=== PATIENT | female | born 1995 | race Asian ===

== ENCOUNTER 2024-10-08 12:57 | Emergency (ER) | payer BC, SELFPAY ==
--- NOTE | ~2024-10-08 | US_ITS ---
EXAMINATION: US OB <= 14 weeks fetus DATE: 10/08/2024 15:40 INDICATION: Abdominal cramping during first trimester TECHNIQUE: Real-time pelvic ultrasound utilizing both a transvaginal and transabdominal probe was pe rformed. The interpreting radiologist was not present for the study. COMPARISON: None. FINDINGS: The uterus measures 10.5 x 8.0 x 10.1 cm. There is an intrauterine gestational sac with single intra uterine fetus. The crown rump length measures 4.4 cm, which correlates with an estimated gestational age of 11 weeks and 1 days. heart motion is identified measuring 174 beats per minute (bpm) by M-mode Doppler. The right ovary measures 2.8 x 2.8 x 2.3 cm. The left ovary measures 3.7 x 2.2 x 2.7 cm. Mass or flow identified in both ovaries on color Doppler. There is no free fluid in the pelvis. IMPRESSION: 1. Single living fetus with heart rate of 174 bpm. 2. Gestational age by ultrasound of 11 weeks 1 day(s) +/- 7 day(s) with ultrasound estimated date of delivery (HALI) of 04/28/2025. Reviewed, dictated and finalized at location A. IMPRESSION: 1. Single living fetus with heart rate of 174 bpm. 2. Gestational age by ultrasound of 11 weeks 1 day(s) +/- 7 day(s) with ultras ound estimated date of delivery (HALI) of 04/28/2025.
[2024-10-08 12:58] VITALS: BP 115/73; PULSE 81; RESP 16; TEMP 36.3; O2SAT 99
--- OUTSIDE RECORDS SUMMARY | 2024-10-08 13:00 | XMS_ITS | Clinical Summary ---
Author Organization [facility] Address [address] [address] Care Team Providers Care Glove Sewer Name Role Phone Osiris Dyer NP Primary Care Provider [phone] Allergies Active Allergy Reactions Criticality Noted Date Comments Doxycycline Hyclate Other (See comments) Low 2023 made her feel wierd Medications lamoTRIgine (LaMICtal) 200 mg tablet Take 1 tablet (200 mg total) by mouth every evening 03/30/2024 Active LORazepam (ATIVAN) 0.5 mg tablet Take by mouth 3 (three) times a day as needed 08/31/2024 Active vit 81-mreq-towfx-d musa 27mg iron- 800 mcg-250 mg capsule Take by mouth Active metoclopramide (REGLAN) 5 mg tabletIndicatio ns:Nausea and vomiting in Take 1 tablet (5 mg total) by mouth 4 (four) times a day 120 tablet 09/02/2024 10/03/19 25 Active Problems Problem Noted Date Diagnosed Date Anxiety 09/02/2024 Positive test 09/02/2024 Primary insomnia 09/02/2024 Vitamin D deficiency 09/02/2024 Allergic rhinitis 09/26/2017 Assessment & Plan (09/26/2017 8:57 AM CDT): Patient with symptoms of allergic rhinitis. Symptoms include rhinorrhea, congestion, and postnasal drip. Patient does not currently take anything for her symptoms. Patient denies any specific triggers and is unaware of a correlating season. The patient to start on Zyrtec, Flonase and saline irrigation daily for her symptoms We may consider RAST testing in the future if her symptoms do not improve. Family history of malignant neoplasm of breast 0 05/20/2016 Overview (08/15/2020): Note: mother Gastroesophageal reflux disease 11/25/2015 Overview (08/19/2016): GERD Assessment & Plan (10/24/2016 12:37 PM CDT): Patient was provided with educational material regarding reflux precautions. Patient was instructed to refrain from eating a meal approximately 3 hours prior to bedtime. Patient was instructed to elevate the head of the bed by approximately 8 inches. Patient was to refrain from consuming spicy greasy fatty foods, dairy products, and excessive caffeine use. Patient was also advised to increase water consumption. Patient was also instructed on weight reduction and exercise regimen. Patient was also instructed on the importance of compliance with medications. Irritable bowel syndrome 10/27/2014 Overview (08/19/2016): IBS Moderate episode of recurrent major depressive d isorder 10/27/2014 Resolved Problems Problem Noted Date Diagnosed Date Resolved Date BRBPR (bright red blood per rectum) 08/25/2023 09/02/2024 Constipation 08/25/2023 09/02/2024 Diarrhea 08/25/2023 09/02/2024 COVID-19 virus infection 12/13/2022 Hypokalemia 12/13/2022 09/02/2024 Nausea 12/13/2022 09/02/2024 Acne 05/03/2017 09/02/2024 Perioral dermatitis 05/03/2017 09/03/19 25 Body mass index (BMI) 20.0-20.9, adult 12/21/2016 09/02/2024 Chronic tonsillitis 10/24/2016 09/03/19 25 Assessment & Plan (01/09/2018 2:03 PM CDT): Patient presents today for her 1st post operative visit. Patient did experience uncontrolled pain and medication induced constipation post operatively - patient did go to the ED 5 days post op for treatment. Today patient notes resolution of her symptoms. Patient has recovered well status post tonsillectomy. Patient is only day 13 post op; I have instructed her to continue soft foods for the next couple of days and ease into regular physical activity; after which there is no need for any further dietary or physical restrictions. Patient to follow up as needed. Assessment & Plan (11/19/2017 12:27 PM CDT): Patient continues to experience recurring tonsillitis. Based on the history obtained from the patient in conjunction with my physical findings patient meets indications to undergo a Coblation tonsillectomy. A thorough discussion took place today with the patient and her mother pertaining to her condition and treatment recommendations. All questions were answered to what appeared to be patient's and mother's understanding and satisfaction. After the procedure was explained in full the potential risk, complications, benefits and alternatives patient would like to proceed. Patient will be scheduled in a timely fashion. Assessment & Plan (10/24/2016 12:37 PM CDT): Based on the history obtained from the patient in conjunction with my physical findings patient meets indications undergo coblation tonsillectomy. A thorough discussion took place today with the patient and her mother pertaining to her her condition. All questions were answered to what appeared to be patient and mother's satisfaction. All questions were answered to what appeared to be patient's understanding and satisfaction. After the procedure was explained in full the potential risk, complications, benefits and alternatives patient would like to proceed. Patient will be scheduled in a timely fashion. Acute bacterial pharyngitis 11/08/2015 09/02/2024 Overview (08/19/2016): Acute bacterial tonsillitis Assessment & Plan (09/26/2017 8:58 AM CDT): Patient with signs and symptoms and correlate with an acute bacterial tonsillitis. Tonsils cryptic, +2 with exudate bilaterally. Erythema present. Again discussed with patient that she meets indications to underg tonsillectomy. We discussed the tonsillectomy procedure, the risks associated with the surgery, and the recovery process in great detail. All of the patients and her mother's questions were answered in full. After the procedure was explained in full, the potential risk, complications, benefits, and alternatives patient would like to proceed. However the patient would like to wait until she returns from [place] has a break from school she plans on coming back in scheduling her tonsillectomy the beginning of December. Patient started on clindamycin Medrol Dosepak Patient to follow up when she is ready to schedule her surgery. 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 Abdominal pain 07/22/2013 09/02/2024 Alternating constipation and diarrhea 06/20/2013 09/02/2024 Skin benign neoplasm 05/16/2013 025 Sebaceous cyst 05/16/2013 09/02/2024 Encounters Date Type Department Care Team Description 09/09/2024 Results Follow-Up [facility] at [address] [place] [address] Osiris Dyer NP CBC with auto differential, Comprehensive metabolic panel, Lipid panel, Additional followed-up results: 7 09/07/2024 8:45 AM CDT Lab [address] [address] Need for hepatitis C screening test; Positive test; Vitamin D deficiency; Screening for thyroid disorder; History of elevated glucose; Screening for lipid disorders 09/02/2024 7:30 AM CDT Office Visit [facility] at [address] [place] [phone] Osiris Dyer NP Positive test (Primary Dx); Nausea and vomiting in ; Irritable bowel syndrome with both constipation and diarrhea; Gastroesophageal reflux disease without esophagitis; Allergic rhinitis, unspecified seasonality, unspecified trigger; Vitamin D deficiency; Primary insomnia; Anxiety; Moderate episode of recurrent major depressive disorder (HCC); Need for hepatitis C screening test; Encounter for hepatitis C screening test for low risk patient; History of elevated glucose; Screening for thyroid disorder; Screening for lipid disorders from Last 3 Months Immunizations Immunization Administration Dates Next Due DTaP 12/19/2000, 0,07/06/1998,04/27/1998,1 05/24/1997 DTaP / Hep B / IPV 04/27/1998 Hep B / HiB 04/27/1998 Hep B, Adolescent or Pediatric 12/29/1999,1998,04/27/1998 HiB 04/27/1998 IPV 12/19/2000,04/27/1998,11/26/1997 ,03/25/1997 Influenza, Unspecified 02/22/2024(Deferred: Floridalma ent Refused) MMR 12/19/2000,03/24/1998 Meningococcal MCV4P (Menactra) 10/27/2014 OPV 04/27/1998,11/26/1997,03/25/1997 Tdap 11/18/2010 Varicella 11/18/2014,11/13/2001 Surgical History Surgery Date Site/Laterality Comments OTHER SURGICAL HISTORY electrocuted 2012. OTHER SURGICAL HISTORY wisdom tooth removal 10/10/14. OTHER SURGICAL HISTORY Zo honeycutt OTHER SURGICAL HISTORY Dr. Jaramillo/Dr. Gregory Dentist COLONOSCOPY 07/13/2013 - 08/12/2013 Medical History Medical History Date Comments Hx Other Medical 2012 ibs; Comments: PULL TAB [employer]ER 10/27/2014 - Recurrent tonsillitis Motion sickness Irritable bowel syndrome GERD (gastroesophageal reflux disease) Depression Anxiety Ear problems Syncope 05/11/2015 Skin neoplasm 02/20/2014 Skin benign neoplasm 05/16/2013 COVID-19 virus infection 12/13/2022 Hypokalemia 12/13/2022 Nausea 12/13/2022 Perioral dermatitis 05/03/2017 Sebaceous cyst 05/16/2013 Diarrhea 08/25/2023 Constipation 08/25/2023 BRBPR (bright red blood per rectum) 08/25/2023 Chronic tonsillitis 10/24/2016 Family History Medical History Relation Name Comments Anxiety disorder Brother Anxiety; Anxiety disorder Father Colon polyps Father Hyperlipidemia Father Hyperlipidemi a; Other Father Alive and well; Breast cancer Mother breast cancer; negative genetic testing. Depression Mother Depression; Other Mother Arthritis-neck; Diabetes Paternal Grandfather Relation Name Status Comments Brother Father Alive Mother Paternal Grandfather Social History Tobacco Use Types Packs/Day Years Used Date Smoking Tobacco: Never Smokeless Tobacco: Never Tobacco Cessation:Counseling Given: Not Answered Alcohol Use Standard Drinks/Week Comments Yes 0 (1 standard drink = 0.6 oz pur e alcohol) 5 mixed drinks weekly Humiliation, Afraid, Rape, and Kick questionnair e Answer Date Recorded Within the last year, have y ou been afraid of your partner or ex-partner? No 03/02/2023 Within the last year, have y ou been humiliated or emotionally abused in other ways by your partner or ex-partner? No Within the last year, have y ou been kicked, hit, slapped, or otherwise physically hurt by your partner or ex-partner? No 03/02/2023 Within the last year, have y ou been raped or forced to have any kind of sexual activity by your partner or ex-partner? No 03/02/2023 AUDIT-C Answer Date Recorded Q1: How often do you have a drink containing alcohol? Never 09/02/2024 Q2: How many drinks containi ng alcohol do you have on a typical day when you are drinking? Patient does not drink Q3: How often do you have si x or more drinks on one occasion? Never 09/02/2024 PHQ-2 Answer Date Recorded PHQ-2 Total Score (If total score is 3 or more points, staff should administer the PHQ-9) 0 09/02/2024 Personal Safety Answer Date Recorded Have you ever been in or are you currently in a harmful physical or emotional relationship or is someone making you feel afraid or unsafe? 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 Not on file Not on file Not on file Obstetrics History Last Filed Vital Signs Vital Sign Reading Time Taken Comments Blood Pressure 100/70 09/02/2024 7:46 AM CDT Pulse 94 09/02/2024 7:46 AM CDT Temperature 36.6 C (97.9 F) 08/31/2023 1:45 PM CDT Respiratory Rate 16 09/02/2024 7:46 AM CDT Oxygen Saturation 100% 09/02/2024 7:46 AM CDT Inhaled Oxygen Concentration - - Weight 56.6 kg (124 lb 11.2 oz) 09/02/2024 7:46 AM CDT Height 160 cm (5' 2.99) 09/02/2024 7:46 AM CDT Body Mass Index 22.1 09/02/2024 7:46 AM CDT Plan of Treatment Health Maintenance Due Date Last Done Comments DTaP/Tdap/Td Vaccine (7 - Td or Tdap) 11/18/2020 11/18/2010, 12/19/2000, 03/29/2000, Additional history exists Cervical Cancer Screening 07/29/2022 07/29/2021, 01/2021 Regular Well Visit/Exam 18-64 03/02/2024 03/02/2023, 07/29/2021, 07/21/2020, Additional history exists Influenza Vaccine (Season Ended) 2025 Depression Screening 09/02/2025 09/02/2024, 09/23/2022, 09/23/2022, Additional history exists Hepatitis B Screening Completed 12/29/1999 , 07/06/1998, 04/27/1998, Additional history exists Varicella Vaccines Completed 11/18/2014, 11/13/2001 Hepatitis C Screening Completed 09/07/2024 HPV Vaccines Aged Out No longer eligi ble based on patient's age to complete this topic Pneumococcal vaccine <65 Aged Out No longer eligible based on patient's age to complete this topic Procedures Procedure Name Priority Date/Time Associated Diagnosis Comments EGFR Routine 09/07/2024 8:56 AM CDT Positive test DIFFERENTIAL AUTO Routine 09/07/2024 8:5 6 AM CDT Positive test HCG, BLOOD, QUANTITATIVE Routine 09/07/2024 8:56 AM CDT Positive test VITAMIN D 25 HYDROXY Routine 09/07/2024 8:56 AM CDT Vitamin D deficiency THYROID FUNCTION CASCADE Routine 09/07/2024 8:56 AM CDT Screening for thyroid disorder HEMOGLOBIN A1C Routine 09/07/2024 8:56 AM CDT History of elevated glucose LIPID PANEL Routine 09/07/2024 8:56 AM CDT Screening for lipid disorders COMPREHENSIVE METABOLIC PANEL Routine 09/07/2024 8:56 AM CDT Positive test CBC WITH AUTO DIFFERENTIAL Routine 09/07/2024 8:56 AM CDT Positive test HEPATITIS C ANTIBODY Routine 09/07/2024 8:56 AM CDT Need for hepatitis C screening test PAP WITH REFLEX TO HIGH RISK HPV Routine 07/29/2021 4:35 PM CDT Well woman exam with routine gynecological exam from Last 3 Months or Most Recently Relevant to Health Maintenance Results * eGFR (09/07/2024 8:56 AM CDT) eGFR >90 >=60 mL/min/1. 73 m2 Comment: Interpretive Data Reference Interval Normal >/= 90 mL/min/1.73m2 Mildly decreased* 60 - 89 mL/min/1.73m2 Mildly to moderately decreased 45 - 59 mL/min/1.73m2 Moderately to severely decreased 30 - 44 mL/min/1.73m2 Severely decreased 15 - 29 mL/min/1.73m2 Kidney Failure < 15 mL/min/1.73m2 *Relative to young adult level Estimated glomerular filtration rate is determined by the 2020 CKD-EPI equation recommended by the National Kidney Foundation (A Unifying Approach to GFR Estimation: Recommendations of the NKF-ASK Task Force on Reassessing the Inclusion of Race in Diagnosing Kidney Disease, JASN 2020). The CKD-EPI equation should not be used for patients with unstable renal function and has not been validated in children and those over 70. Current interpretive data was last reviewed 2021. Blood 09/07/2024 8:56 AM CDT 09/07/2024 9:28 AM CDT us Osiris Dyer NP LAB BLOOD ORDERABLES Final Re sult [facility] [place]) 1 [facility] [place] [address] * Differential, auto (09/07/2024 8:56 AM CDT) Neutrophil abs 5.74 1.50 - 6.50 K/cumm Imm gran abs 0.05 0.00 - 0.10 K/cumm [facility] ([place]) Lymphocyte abs 2.02 0.80 - 3.30 K/cumm [facility] ([place]) Monocyte abs 0.67 0.20 - 0.80 K/cumm [facility] ([place]) Eosinophil abs 0.11 0.00 - 0.50 K/cumm [facility] ([place]) Basophil abs 0.09 0.00 - 0.10 K/cumm [facility] ([place]) Neutrophil pct 66.1 % [facility] ([place]) Comment: Interpretive Data Percent cell count reference ranges are not reported, since discordance with absolute values may lead to misinterpretation of CBC data. Current Interpretive Data was last revised on 2017. Imm gran pct 0.6 % [facility] ([place]) Comment: Interpretive Data Percent cell count reference ranges are not reported, since discordance with absolute values may lead to misinterpretation of CBC data. Current Interpretive Data was last revised on 2017. Lymphocyte pct 23.3 % [facility] ([place]) Comment: Interpretive Data Percent cell count reference ranges are not reported, since discordance with absolute values may lead to misinterpretation of CBC data. Current Interpretive Data was last revised on 2017. Monocyte pct 7.7 % [facility] ([place]) Comment: Interpretive Data Percent cell count reference ranges are not reported, since discordance with absolute values may lead to misinterpretation of CBC data. Current Interpretive Data was last revised on 2017. Eosinophil pct 1.3 % [facility] ([place]) Comment: Interpretive Data Percent cell count reference ranges are not reported, since discordance with absolute values may lead to misinterpretation of CBC data. Current Interpretive Data was last revised on 2017. Basophil pct 1.0 % [facility] ([place]) Comment: Interpretive Data Percent cell count reference ranges are not reported, since discordance with absolute values may lead to misinterpretation of CBC data. Current Interpretive Data was last revised on 2017. Blood 09/07/2024 8:56 AM CDT 09/07/2024 9:28 AM CDT Osiris Dyer MRI ASSISTANT LAB BLOOD ORDERABLES Final Re sult Performing Organization Address City/[facility]/ZIP Co de Phone Number [facility] ([place]) [address] [facility] [place] [address] * Thyroid Function [place] (09/07/2024 8:56 AM CDT) TSH 1.59 0.30 - 4.20 mcIUnit/mL Blood 09/07/2024 8:56 AM CDT 09/07/2024 9:28 AM CDT Osiris Dyer MRI ASSISTANT LAB BLOOD ORDERABLES Final Re sult Performing Organization Address [facility] Co de Phone Number [facility] ([place]) 1 [facility] [place] [address] * CBC with auto differential (09/07/2024 8:56 AM CDT) WBC 8.68 3.80 - 9.90 K/cumm Hgb 14.0 11.9 - 15.5 g/dL [facility] Hct 41.3 35.6 - 45.5 % [facility] Plt 273 150 - 400 K/cumm [facility] ([place]) MPV 9.5 9.1 - 12.3 fL [facility] ([place]) RBC 4.73 3.90 - 5.20 M/cumm [facility] ([place]) MCV 87.3 81.3 - 96.4 fL [facility] ([place]) MCH 29.6 27.1 - 33.3 pg [facility] ([place]) MCHC 33.9 32.3 - 35.7 g/dL [facility] ([place]) RDW CV 12.4 11.1 - 14.9 % [facility] RDW SD 39.9 35.7 - 48.1 fL [facility] ([place]) NRBC abs 0.00 0.00 - 0.01 K/cumm [facility] ([place]) Blood 09/07/2024 8:56 AM CDT 09/07/2024 9:28 AM CDT us Osiris Dyer NP LAB BLOOD ORDERABLES Final Re sult Performing Organization Address [facility] Co de Phone Number [facility] ([place]) [address] [facility] [place] [address] * Hepatitis C antibody Blood (09/07/2024 8:56 AM CDT) Pathologist [facility] Hep C Ab Nonreactive Nonreactive Comment: Interpretive Data Nonreactive: Antibodies to HCV not detected. Does NOT exclude the possibility of recent exposure to HCV. Equivocal: Equivocal for HCV antibodies. Supplemental molecular testing will be automatically performed to determine infection status in accordance with current CDC screening recommendations. Reactive: Positive for HCV antibodies. This may represent current or past HCV infection. Supplemental molecular testing will be automatically performed to determine current infection status in accordance with current CDC screening recommendations. Interpretive data was last revised on 2019. Testing performed by: [facility], [address] [place] [address]., [id number] Blood 09/07/2024 8:56 AM CDT 09/07/2024 3:00 PM CDT us Osiris Dyer NP LAB MICROBIOLOGY - GENERAL OR DERABLES Final Result Performing Organization Address [facility] Co de Phone Number [facility] ([place]) [address] [place] [address] * (ABNORMAL) Vitamin D 25 hydroxy (09/07/2024 8:56 AM CDT) Pathologist [facility] Vitamin D 25-OH 27(L) 30 - 80 ng/mL Blood 09/07/2024 8:56 AM CDT 09/07/2024 9:28 AM CDT us Osiris Dyer NP LAB BLOOD ORDERABLES Final Re sult Performing Organization Address [facility] Co de Phone Number [facility] ([place]) [address] [facility] [place] [address] * (ABNORMAL) hCG, blood, quantitative (09/07/2024 8:56 AM CDT) hCG, quant 46,981.0( H) 0.0 - 5.0 IUnits/L Comment: Interpretive Data Male: < 5 IU/L Non- premenopausal Female: <5 IU/L The Fantasma hCG Beta Quant assay procedure was used. Results from different manufacturers or methods may not be comparable. Serial testing should be performed using the same method. Interpretive Data was last revised on 2023 Blood 09/07/2024 8:56 AM CDT 09/07/2024 9:28 AM CDT Osiris Dyer NP LAB BLOOD ORDERABLES Final Re sult Performing Organization Address [facility] Co de Phone Number [facility] ([place]) [address] [place] [address] * Hemoglobin A1c (09/07/2024 8:56 AM CDT) Pathologist [facility] Hgb A1C 5.1 4.0 - 5.6 % Estimated Average Glucose 100 mg/dL [facility] ([place]) Comment: The ADA recommends reporting an estimated Average Glucose (eAG) with all Hemoglobin A1c results using the equation derived from a study of 507 normal and diabetic adults. Minority populations were underrepresented and children were not included. (Diabetes Care 31:0860-2230, 2008). The eAG is not equivalent to a fasting glucose. Blood 09/07/2024 8:56 AM CDT 09/07/2024 9:28 AM CDT Osiris Dyer NP LAB BLOOD ORDERABLES Final Re sult Performing Organization Address City/[facility]/ZIP Co de Phone Number [facility] ([place]) [address] [facility] [place] [address] * Lipid panel (09/07/2024 8:56 AM CDT) Cholesterol 148 30 - 199 mg/dL Comment: Interpretive Data Ages < or = 19 years Acceptable: <170 mg/dL Borderline high: 170-199 mg/dL High: >or= 200 mg/dL Ages > or = 20 years Desirable: <200 mg/dL Borderline high: 200-239 mg/dL High: >or= 240 mg/dL Literature References: 1. Expert Panel on Integrated Guidelines for Cardiovascular Health and Risk Reduction in Children and Adolescents. Pediatrics 2011;128:S213 2. NCEP Expert Panel. Circulation 2004;110:227 Current Interpretive Data was last revised on 2018. Triglycerides 63 <=149 mg/dL [facility] ([place]) Comment: Interpretive Data Ages < or = 9 years Acceptable: <75 mg/dL Borderline high: 75-99 mg/dL High: >or= 100 mg/dL Ages 10 to 20 years Acceptable: <90 mg/dL Borderline high: 90-129 mg/dL High: >or= 130 mg/dL Ages > or = 20 years Desirable: <150 mg/dL Borderline high: 150-199 mg/dL High: 200-499 mg/dL Very high: >or= 499 mg/dL Literature References: 1. Expert Panel on Integrated Guidelines for Cardiovascular Health and Risk Reduction in Children and Adolescents. Pediatrics 2011;128:S213 2. NCEP Expert Panel. Circulation 2004;110:227 Current Interpretive Data was last revised on 2018. HDL 61 >=40 mg/dL [facility] ([place]) Comment: Interpretive Data Ages < or = 19 years Acceptable: >45 mg/dL Borderline low: 40-45 mg/dL Low: <40 mg/dL Ages > or = 20 years Desirable: >or= 60 mg/dL Low: <40 mg/dL Literature References: 1. Expert Panel on Integrated Guidelines for Cardiovascular Health and Risk Reduction in Children and Adolescents. Pediatrics 2011;128:S213 2. NCEP Expert Panel. Circulation 2004;110:227 Current Interpretive Data was last revised on 2018. LDL, calculated 74 <=129 mg/dL [facility] ([place]) Comment: Interpretive Data Ages < or = 19 years Acceptable: <110 mg/dL Borderline high: 110-129 mg/dL High: >or= 130 mg/dL Ages > or = 20 years Optimal: <100 mg/dL Near optimal: 100-129 mg/dL Borderline high: 130-159 mg/dL High: >160 mg/dL Calculated using the Lui LDL-C estimating equation. This equation was implemented on 2024. Prior to this date LDL-C was estimated using the Friedewald equation. Literature References: 1. Expert Panel on Integrated Guidelines for Cardiovascular Health and Risk Reduction in Children and Adolescents. Pediatrics 2011;128:S213 2. NCEP Expert Panel. Circulation 2004;110:227 3. Lui M et al. JEFF Cardiol. 2020 September 12;5(5):540-548. doi: 10.1001/jamacardio.2020.0013 Current Interpretive Data was last revised on 2024. Non-HDL Cholesterol 87 mg/dL [facility] ([place]) Comment: Interpretive Data Ages < or = 19 years Acceptable: <120 mg/dL Borderline high: 120-144 mg/dL High: >145 mg/dL Ages > or = 20 years When triglycerides are >200 mg/dL, Non-HDL cholesterol is a secondary target of therapy with treatment goals that are 30 mg/dL greater than the LDL cholesterol target. Literature References: 1. Expert Panel on Integrated Guidelines for Cardiovascular Health and Risk Reduction in Children and Adolescents. Pediatrics 2011;128:S213 2. NCEP Expert Panel. Circulation 2004;110:227 Current Interpretive Data was last revised on 2018. Chol/HDL ratio 2 [facility] ([place]) Blood 09/07/2024 8:56 AM CDT 09/07/2024 9:28 AM CDT us Osiris Dyer MRI ASSISTANT LAB BLOOD ORDERABLES Final Re sult [facility]O [facility] (ROXANA) 1 [facility] [place] [address] * Comprehensive metabolic panel (09/07/2024 8:56 AM CDT) Sodium 135 135 - 145 mmol/L Potassium, pl 4.2 3.3 - 4.9 mmol/L [facility] (ROXANA) Chloride 101 97 - 110 mmol/L [facility] ([facility]) CO2 22 22 - 32 mmol/L [facility] ([facility]) Anion gap 12 2 - 15 mmol/L [facility] ([place]) BUN 9 6 - 25 mg/dL [facility] ([place]) Creatinine 0.63 0.60 - 1.10 mg/dL [facility] ([place]XA[facility]) Glucose 91 70 - 199 mg/dL [facility] ([facility]XA[facility]) Comment: Interpretive Data Fasting glucose >/= 126 mg/dl is diagnostic for diabetes. Fasting is defined as no caloric intake for at least 8 hours. Fasting glucose between 100 mg/dl to 125 mg/dl is diagnostic of prediabetes. In a patient with classic symptoms of hyperglycemia or hyperglycemic crisis, a random glucose >/= 200 mg/dl is diagnostic for diabetes. In the absence of unequivocal hyperglycemia, results should be confirmed by repeat testing. The classification and Diagnosis of Diabetes Diabetes Care 2021; 46: S19-S40. Current interpretive data was last revised 2022. Calcium 9.7 8.5 - 10.3 mg/dL [facility] (ROXANA) Bilirubin, total 0.3 0.1 - 1.2 mg/dL [facility] (ROXANA) Protein, pl 7.5 6.5 - 8.5 g/dL [facility] (ROXANA) Albumin 4.4 3.5 - 5.0 g/dL [facility] (ROXANA) Alk phos 45 40 - 130 Units/L [facility] (ROXANA) ALT 11 7 - 45 Units/L [facility] (ROXANA) AST 16 10 - 45 Units/L [facility] (ROXANA) Blood 09/07/2024 8:56 AM CDT 09/07/2024 9:28 AM CDT us Osiris Dyer MRI ASSISTANT LAB BLOOD ORDERABLES Final Re sult [facility] (ROXANA) 1 [facility] [place] [address] * Pap with reflex to High Risk HPV (07/29/2021 4:35 PM CDT) CLINICAL INFORMATION: Faraz Enriquez Comment:Routine exam LMP Faraz Enriquez Comment:07/15/2021 Previous Pap Faraz Enriquez Comment:Information not prov ided Prev. Bx Faraz Enriquez Comment:Information not prov ided SOURCE: Faraz Enriquez Comment:Cervix, Endocervix Pap, specimen adequacy Faraz Enriquez Comment: Satisfactory for evaluation. Endocervical/transformation zone component present. HPV interp Faraz Enriquez Comment:Negative for intraep ithelial lesion or malignancy. COMMENTS Faraz Enriquez Comment: This Pap test has been evaluated with computer assisted technology. Mobile Home Laborer Marcus Monroy Comment: MVB, CT(ASCP) CT screening location: [place] [address] [address] [place] [address] Review fiscal agent Faraz Enriquez Comment: ABC, CT(ASCP) CT screening location: [place] [address] Administration [place] [address] Comment Faraz Enriquez Comment: EXPLANATORY NOTE: The Pap is a screening test for cervical cancer. It is not a diagnostic test and is subject to false negative and false positive results. It is most reliable when a satisfactory sample, regularly obtained, is submitted with relevant clinical findings and history, and when the Pap result is evaluated along with historic and current clinical information. Thin prep 07/29/2021 4:35 PM CDT 07/30/2021 3:15 AM CDT us Jackelyn Duenas MRI ASSISTANT LAB CYTOLOGY ORDERABLES F inal Result FARAZ Faraz Alpheus CommunicationsGilmaSarah Beth [address] [address] [place] [address] from Last 3 Months or Most Recently Relevant to Health Maintenance Insurance CIGNA IB Member Subscriber Plan / Payer (Ef fective 2002-Present) Name:Maggei Roman Relation to Subscriber:Self Name:Maggie Roman Payer ID:[id number] ([facility]) Group ID:[id number] Type:CIGNA HMO/PPO Address: [facility] [address] [place] [address] [facility] CHOICE PLUS CIGNA [facility] CHOICE PLUS [facility] Advance Directives For more information, please contact: [phone] * Full Code (Latest Code Status on File) Date Activated Date Inactivated Comments 08/31/2023 11:30 AM 08/31/2023 6:01 PM Care Teams Glove Sewer Relationship Specialty Start Date End Date Osiris Dyer NP [address] [facility] [address] PCP - General Family Medicine 09/02/24
--- OUTSIDE RECORDS SUMMARY | 2024-10-08 13:00 | XMS_ITS | Patient Health Record ---
Author Organization [facility] Address [address] [place] [address] Care Team Providers Care Viner Operator Name Role Phone Pablo Magallanes Primary Care Provider Reason For Referral No Information Medications Medication SIG (Take, Route, Fr equency, Duration) Notes Start Date End Date Status Control Pills 9889 Active Zoloft 50 mg 1 tab(s) orally once a day for 30 day(s) Active Cipro 500 mg 1 tab(s) orally BID for 7 days Active Plan Of Treatment Pending Test Test Name Order Date UA: Rapid dipstick 11/08/2013 Insurance Providers Payer Name Payer Address Payer Phone Subscriber Number Group Number Insured Name Patient Relationship to Insured Coverage Start Date Coverage End Date [employer] [id number] [id number] MARIO MCKEON Self - patient is the insured Medical (General) History Medical History History ICD Code UTI irritable bowel syndrome
--- OUTSIDE RECORDS SUMMARY | 2024-10-08 13:00 | XMS_ITS | Encounter Summary ---
Author Organization [facility] Healthcare Address [address] [place] [address] Care Team Providers Care Deep Well Contractor Name Role Phone Osiris Dyer PRODUCE TEAM LEAD Primary Care Provider [phone] Encounter Details Date Type Department Care Team (Late st Contact Info) Description 09/09/2024 Results Follow-Up [facility] Medical Group Family Medicine at [address] [place] [address] Osiris Dyer, PRODUCE TEAM LEAD [address] [place] [address] [address] [place] [address] CBC with auto differential, Comprehensive metabolic panel, Lipid panel, Additional followed-up results: 7 Social History Tobacco Use Types Packs/Day Years Used Date Smoking Tobacco: Never Smokeless Tobacco: Never Alcohol Use Standard Drinks/Week Comments Yes 0 [...] on file Legal Sex Female 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 Not on file Not on file Not on file documented as of this encounter Plan of Treatment Not on file documented as of this encounter Visit Diagnoses Not on filedocumented in this encounter Care Teams Deep Well Contractor Relationship Specialty Start Date End Date Osiris Dyer PRODUCE TEAM LEAD [address] [place] [address] [place] [address] PCP - General Family Medicine 09/02/24 documented as of this encounter
--- OUTSIDE RECORDS SUMMARY | 2024-10-08 13:00 | XMS_ITS | CONTINUITY OF CARE DOCUMENT ---
Author Name ana liliakee ana liliakee Address Unknown Organization [facility] Address [address] [facility] [address] [place] [address] Phone [phone] Care Team Providers Care Automotive Exhaust Emissions Technician Name Role Phone Radha Rodriguez MD Unavailable [phone] Cathryn Jones MD Unavailable Cathryn Jones MD Unavailable PROBLEMS Condition Status Date Provider Notes Family History of Hyperlipidemia: active ? Sa maik Rodriguez MD Syncope active Radha Rodriguez MD ENCOUNTERS Date Type Provider Location Encounter Diagnosis - In-person encounter Office Visit Radha Rodriguez MD [facility] - In-person encounter Office Visit Radha Rodriguez MD [facility] Family History of Hyperlipidemia:Syn cope VITAL SIGNS Date Observation Value Provider blood pressure, diastolic 65 mm[Hg] Dc emperatrizsa Sullivan blood pressure, systolic 99 mm[Hg] Arminda evelina respiratory rate E&M 16 /min Ariadna Nate pulse rate 82 /min Ariadna Sullivan oxygen saturation, oximetry 98 % Ariadna Sullivan Body Mass Index (Ratio) 20.90 kg/m2 Farrah jose raul Sullivan height E&M 63 [in_i] Ariadna Nate weight E&M 118 [lb_av] Ariadna Nate blood pressure, diastolic 68 mm[Hg] Dc emperatriz Nate blood pressure, systolic 100 mm[Hg] Arminda evelina Nate respiratory rate E&M 16 /min Ariadna Sullivan pulse rate 61 /min Ariadna Sullivan oxygen saturation, oximetry 98 % Ariadan Sullivan Body Mass Index (Ratio) 21.08 kg/m2 Farrah Sullivan height E&M 63 [in_i] Ariadna Sullivan weight E&M 119.0 [lb_av] Ariadna Sullivan ALLERGIES No Known Drug Allergies HISTORY OF MEDICATION USE Medication Status Instructions Dates Provider Indications Com ments ZOLOFT 50 MG ORAL TABLET active once daily Ariadna Sullivan AVIANE 0.1-20 MG-MCG ORAL TABLET active once daily Ariadna Sullivan SOCIAL HISTORY Date Observation Value Provider social history reviewed E&M duc louieed - no changes required Radha Rodriguez MD smoking/tobacco cess ation, patient education and counseling yes Ariadna Sullivan smoking status Never smoker Ariadna Sullivan FAMILY HISTORY Family Member Condition Father Family History of Hy perlipidemia: Mother Family History Breas t Cancer: INSURANCE PROVIDERS Payer name Policy type / Coverage type [place] red green party ID [employer] BENEFITS APGR Green [id number] TREATMENT PLAN Date Name Performer Cardiology Radha neves MD Cardiology: O rders: E KG (CPT-67632) 9 9245 HIGH Complex (CPT-74084) H olter Monitor 24 Hr (CPT-74687) C omplete Echo (CPT-61033) Radha Rodriguez MD Date Name Holter Monitor 24 Hr Complete Echo HISTORY OF PROCEDURES Procedure Date Procedure Name Provider Procedure Notes S tatus EKG Radha neves MD completed SNOMED-CT: [id number] Current Medications Documented Radha Rodriguez MD completed Holter, 24 or 48 Radha silvestre MD completed EKG Radha neves MD completed SNOMED-CT: [id number] Current Medications Documented Radha Rodriguez MD completed
--- OUTSIDE RECORDS SUMMARY | 2024-10-08 13:00 | XMS_ITS | Referral Summary ---
Author Organization [facility] Address [address] [place] [address] Care Team Providers Care Charter Bus Driver Name Role Phone Osiris Dyer NP Primary Care Provider [phone] Encounters Date Type Department Care Team Description 09/09/2024 Results Follow-Up [facility] Medical Group Family Medicine at [address] [place] [address] Osiris Dyer NP CBC with auto differential, Comprehensive metabolic panel, Lipid panel, Additional followed-up results: 7 09/07/2024 8:45 AM CDT Lab [address] [address] Need for hepatitis C screening test; Positive test; Vitamin D deficiency; Screening for thyroid disorder; History of elevated glucose; Screening for lipid disorders 09/02/2024 7:30 AM CDT Office Visit [facility] Medical [facility] Family Medicine at [address] [place] [phone] Osiris Dyer NP Positive test (Primary Dx); [...] for lipid disorders from Last 3 Months Allergies Active Allergy Reactions Criticality Noted Date Comments Doxycycline Hyclate Other (See comments) Low 2023 made her feel wierd Medications lamoTRIgine (LaMICtal) 200 mg tablet Take 1 tablet (200 mg total) by mouth every evening 03/30/2024 Active LORazepam (ATIVAN) 0.5 mg tablet Take by mouth 3 (three) times a day as needed 08/31/2024 Active vit 91-bryo-dbssq-d musa 27mg iron- 800 mcg-250 mg capsule [...] neoplasm 05/16/2013 025 Sebaceous cyst 05/16/2013 09/02/2024 Immunizations Immunization Administration Dates Next Due DTaP 12/19/2000, 0,07/06/1998,04/27/1998,1 05/24/1997 DTaP / Hep B / IPV 04/27/1998 Hep B / HiB 04/27/1998 Hep B, Adolescent or Pediatric 12/29/1999,1998,04/27/1998 HiB 04/27/1998 IPV 12/19/2000,04/27/1998,11/26/1997 ,03/25/1997 Influenza, Unspecified 02/22/2024(Deferred: Floridalma ent Refused) MMR 12/19/2000,03/24/1998 Meningococcal MCV4P (Menactra) 10/27/2014 OPV 04/27/1998,11/26/1997,03/25/1997 Tdap 11/18/2010 Varicella 11/18/2014,11/13/2001 Social History Tobacco Use Types Packs/Day Years [...] on file Legal Sex Female 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 Not on file Not on file Not on file Last Filed Vital Signs Vital Sign Reading [...] 09/02/2024 7:46 AM CDT Plan of Treatment Not on file Procedures Procedure Name Priority Date/Time Associated Diagnosis [...] 09/07/2024 9:28 AM CDT us Osiris Dyer MEDICAL CHARGE ENTRY SPECIALIST LAB BLOOD ORDERABLES Final Re sult [facility] 1 [facility] Department [place] [address] * Differential, auto (09/07/2024 8:56 AM CDT) Neutrophil abs 5.74 1.50 - 6.50 K/cumm Imm gran abs 0.05 0.00 - 0.10 K/cumm [facility] (ROXANA) Lymphocyte abs 2.02 0.80 - 3.30 K/cumm [facility] (ROXANA) Monocyte abs 0.67 0.20 - 0.80 K/cumm [facility] (ROXANA) Eosinophil abs 0.11 0.00 - 0.50 K/cumm [...] CDT 09/07/2024 9:28 AM CDT Osiris Dyer MEDICAL CHARGE ENTRY SPECIALIST LAB BLOOD ORDERABLES Final Re sult NORBERTO CHILDERS (ROXANA) 1 [facility] [place] [address] * Thyroid Function Hendricks (09/07/2024 8:56 AM CDT) TSH 1.59 0.30 - 4.20 mcIUnit/mL Blood 09/07/2024 8:56 AM CDT 09/07/2024 9:28 AM CDT us Osiris Dyer MEDICAL CHARGE ENTRY SPECIALIST LAB BLOOD ORDERABLES Final Re sult Performing Organization Address [facility] Co de Phone Number NORBERTO CHILDERS (ROXANA) 1 [facility] [place] [address] * CBC with auto differential (09/07/2024 8:56 AM CDT) WBC 8.68 3.80 - 9.90 K/cumm Hgb 14.0 11.9 - 15.5 g/dL [facility] (ROXANA) Hct 41.3 35.6 - 45.5 % [facility] Plt 273 150 - [...] RDW CV 12.4 11.1 - 14.9 % [facility] (ROXANA) RDW SD 39.9 35.7 - 48.1 fL [facility] (ROXANA) NRBC abs 0.00 0.00 - 0.01 K/cumm [facility] (ROLFE) Blood 09/07/2024 8:56 AM CDT 09/07/2024 9:28 AM CDT Osiris Dyer NP LAB BLOOD ORDERABLES Final Re sult Performing Organization Address [facility] de Phone Number NORBERTO CHILDERS (ROLFE) 1 [facility] [place] [address] * Hepatitis C antibody Blood (09/07/2024 8:56 AM CDT) Hep C Ab Nonreactive Nonreactive Comment: Interpretive [...] revised on 2019. Testing performed by: [facility], [address] [place] [address]., [address] Blood 09/07/2024 8:56 AM CDT 09/07/2024 3:00 PM CDT us Osiris Dyer NP LAB MICROBIOLOGY - GENERAL OR DERABLES Final Result Performing Organization Address [facility] de Phone Number NORBERTO CHILDERS (ROLFE) 1 [place] [address] * (ABNORMAL) Vitamin D 25 hydroxy (09/07/2024 8:56 AM CDT) Vitamin D 25-OH 27(L) 30 - 80 ng/mL Blood 09/07/2024 8:56 AM CDT 09/07/2024 9:28 AM CDT us Osiris Dyer NP LAB BLOOD ORDERABLES Final Re sult Performing Organization Address [facility]/ZIP Co de Phone Number NORBERTO CHILDERS (ROLFE) 1 [place] [address] * (ABNORMAL) hCG, blood, quantitative (09/07/2024 8:56 AM CDT) Pathologist [facility] hCG, quant 46,981.0( H) 0.0 - 5.0 [...] ORDERABLES Final Re sult Performing Organization Address [facility] Co de Phone Number NORBERTO CHILDERS (ROLFE) 1 [place] [address] * Hemoglobin A1c (09/07/2024 8:56 AM CDT) [facility] Hgb A1C 5.1 4.0 - 5.6 % Estimated Average Glucose 100 mg/dL [facility] (ROLFE) Comment: The ADA recommends reporting an estimated Average Glucose (eAG) with all Hemoglobin A1c results using the equation derived from a study of 507 normal and diabetic adults. Minority populations were underrepresented and children were not included. (Diabetes Care 31:1370-7069, 2008). The eAG is not equivalent to a fasting glucose. Blood 09/07/2024 8:56 AM CDT 09/07/2024 9:28 AM CDT Osiris Dyer NP LAB BLOOD ORDERABLES Final Re sult Performing Organization Address City/[facility]/ZIP Co de Phone Number NORBERTO CHILD[facility] (ROLFE) 1 [place] [address] * Lipid panel (09/07/2024 8:56 AM CDT) [...] NCEP Expert Panel. Circulation 2004;110:227 3. Lui Hamilton et al. JEFF Cardiol. 2020 September 12;5(5):540-548. [...] Final Re sult NORBERTO CHILDERS (ROXANA) 1 [facility] Department [place] [address] * Comprehensive metabolic panel (09/07/2024 8:56 AM CDT) Sodium 135 135 - 145 mmol/L Potassium, pl 4.2 3.3 - 4.9 mmol/L NORBERTO CHILDERS (ROXANA) Chloride 101 97 - 110 mmol/L [...] 09/07/2024 9:28 AM CDT us Osiris Dyer MEDICAL CHARGE ENTRY SPECIALIST LAB BLOOD ORDERABLES Final Re sult [facility] (ROXANA) 1 [facility] Department [place] [address] * Pap with reflex to High Risk HPV (07/29/2021 4:35 PM CDT) CLINICAL INFORMATION: Yolia HealthKeith Enriquez Comment:Routine exam LMP Yeni MartinezGilmaNya Enriquez Comment:07/15/2021 Previous Pap Yeni MartinezGilmaNya reece Mina Comment:Information not prov ided Prev. Bx Yeni JuanGilmaNya reece Mina Comment:Information not prov ided SOURCE: Yeni JuanKeith shanell Mina Comment:Cervix, Endocervix Pap, specimen adequacy Yeni JuanGilmaNya reece Mina Comment: Satisfactory for evaluation. Endocervical/transformation zone component present. HPV interp Yeni JuanKeith Enriquez Comment:Negative for intraep ithelial lesion or malignancy. COMMENTS Yeni JuanGilmaNya reece Mina Comment: This Pap test has been evaluated with computer assisted technology. Sustain Engineer Marcus Monroy Comment: MVB, CT(ASCP) CT screening location: [place] [address] [address] [place] [address] Review manager military Yeni Enriquez Comment: ABC, CT(ASCP) CT screening location: [place] [address] [address] [place] [address] Comment Ynei Enriquez Comment: EXPLANATORY NOTE: The Pap is [...] 4:35 PM CDT 07/30/2021 3:15 AM CDT Jackelyn Duenas MEDICAL CHARGE ENTRY SPECIALIST LAB CYTOLOGY ORDERABLES F inal Result [facility] Yeni Enriquez [address] [address] [place] [address] from Last 3 Months or Most Recently Relevant to Health Maintenance Insurance CIGNA IBEW Member Subscriber Plan / Payer (Ef fective 2002-Present) Name:Maggie Roman Relation to Subscriber:Self Name:Maggie Roman Allyn Payer ID:[id number] ([facility]) Group ID:[id number] Type:CIGNA HMO/PPO Address: [facility] [address] [place] [address] [facility] [place] [address] COUNT INCLUDES THE [facility] CHOICE PLUS [facility] Advance Directives For more information, please contact: [phone] * Full Code (Latest Code Status on File) Date Activated Date Inactivated Comments 08/31/2023 11:30 AM 08/31/2023 6:01 PM Care Teams Charter Bus Driver Relationship Specialty Start Date End Date Osiris Dyer MEDICAL CHARGE ENTRY SPECIALIST [facility] [facility] [place] [address] PCP - General Family Medicine 09/02/24
--- OUTSIDE RECORDS SUMMARY | 2024-10-08 13:00 | XMS_ITS | Clinical Summary ---
Author Organization [facility] Address [address] [place] [address] Phone Care Team Providers Care Unemployment Insurance Director Name Role Phone Cathryn Jones MD Primary Care Provider [phone] Allergies No known active allergies Medications Temazepam 22.5 MG Capsule TAKE 1 CAPSULE BY MOUTH EVERY DAY AT BEDTIME 05/06/2023 Active Multiple Vitamin (MULTI-VITAMIN PO) Take by mouth daily. Active Active Problems No known active problems Social History Tobacco Use Types Packs/Day Years Used Date Smoking Tobacco: Never Smokeless Tobacco: Never Tobacco Cessation:Counseling Given: Not Answered Comments No Sex and Gender Information Value Date Recorded Sex Assigned at Not on file Legal Sex Female 11:49 PM CDT Gender Identity Not on file Sexual Orientation Not on file Last Filed Vital Signs Vital Sign Reading Time Taken Comments Blood Pressure 92/76 05/11/2023 4:58 PM PACS SPECIALIST Pulse 102 05/11/2023 4:58 PM PACS SPECIALIST Temperature 38.4 C (101.2 F) 05/11/2023 4:58 PM PACS SPECIALIST Respiratory Rate 14 05/11/2023 4:58 PM PACS SPECIALIST Oxygen Saturation 99% 05/11/2023 4:58 PM PACS SPECIALIST Inhaled Oxygen Concentration - - Weight 56.7 kg (125 lb) 05/11/2023 4:58 PM PACS SPECIALIST Height - - Body Mass Index - - Plan of Treatment Health Maintenance Due Date Last Done Comments Hepatitis C Virus (HCV) Screening 1996 Pap Smear 2017 Influenza Immunization (#1) 2024 SARS-COV-2 Immunization (2023-25 season) 2024 Respiratory Syncytial Virus (RSV) Immunization (Adult) (1 - 1-dose 75+ series) 10/24/2071 Hepatitis B Immunization Completed , 07/06/1998, 04/27/1998, Additional history exists DTaP/Tdap/Td Immunization Discontinued 2010, 12/19/2000, 03/29/2000, Additional history exists TdaP Immunization Completed 11/18/2010 Meningococcal Immunization (ACWY) Completed 10/27/2014 Pneumococcal Immunization Combined Aged Out No longer eligible based on patient's age to complete this topic Rotavirus Immunization Aged Out No lo nger eligible based on patient's age to complete this topic [place] [address] Care Teams Unemployment Insurance Director Relationship Specialty Start Date End Date Cathryn Jones MD [address] [place] [address] PCP - General Internal Medicine 12/11/19
--- OUTSIDE RECORDS SUMMARY | 2024-10-08 15:15 | XMS_ITS | Encounter Summary ---
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 Not on file Not on file Not on file documented as of this encounter Plan of Treatment Not on file documented as of this encounter Visit Diagnoses Not on filedocumented in this encounter Care Teams Car Conditioner Relationship Specialty Start Date End Date Osiris Dyer RAIL BENDER [address] [facility] [address] [place] [address] [place] [address] PCP - General Family Medicine 09/02/24 documented as of this encounter
--- OUTSIDE RECORDS SUMMARY | 2024-10-08 15:15 | XMS_ITS | Clinical Summary ---
Author Organization [facility] Address [address] [place] [address] Phone Care Team Providers Care Record Center Coordinator Name Role Phone Cathryn Jones MD Primary Care Provider [phone] Allergies No known active allergies Medications Temazepam [...] Comments Blood Pressure 92/76 05/11/2023 4:58 PM PODIATRIC FOOT AND ANKLE SPECIALIST Pulse 102 05/11/2023 4:58 PM PODIATRIC FOOT AND ANKLE SPECIALIST Temperature 38.4 C (101.2 F) 05/11/2023 4:58 PM PODIATRIC FOOT AND ANKLE SPECIALIST Respiratory Rate 14 05/11/2023 4:58 PM PODIATRIC FOOT AND ANKLE SPECIALIST Oxygen Saturation 99% 05/11/2023 4:58 PM PODIATRIC FOOT AND ANKLE SPECIALIST Inhaled Oxygen Concentration - - Weight 56.7 kg (125 lb) 05/11/2023 4:58 PM PODIATRIC FOOT AND ANKLE SPECIALIST Height - - Body Mass Index [...] patient's age to complete this topic Insurance [facility] Care Teams Record Center Coordinator Relationship Specialty Start Date End Date Cathryn Jones MD [address] [place] [address] PCP - General Internal Medicine 12/11/19
--- OUTSIDE RECORDS SUMMARY | 2024-10-08 15:15 | XMS_ITS | Clinical Summary ---
Author Organization [facility] Address [address] [address] Care Team Providers Care Equities Trader Name Role Phone Osiris Dyer NP Primary Care Provider [phone] Allergies Active Allergy Reactions Criticality Noted Date Comments Doxycycline Hyclate Other (See comments) Low 2023 made her feel wierd Medications lamoTRIgine (LaMICtal) 200 mg tablet Take 1 tablet (200 mg total) by mouth every evening 03/30/2024 Active LORazepam (ATIVAN) 0.5 mg tablet Take by mouth 3 (three) times a day as needed 08/31/2024 Active vit 94-wvto-vhtdp-d musa 27mg iron- 800 mcg-250 mg capsule [...] like to wait until she returns from [place] has a break from school she plans [...] Department Care Team Description 09/09/2024 Results Follow-Up [facility] Family Medicine at [address] [place] [address] Osiris Dyer NP CBC with auto differential, Comprehensive metabolic panel, Lipid panel, Additional followed-up results: 7 09/07/2024 8:45 AM CDT Lab [address] [address] Need for hepatitis C screening test; Positive test; Vitamin D deficiency; Screening for thyroid disorder; History of elevated glucose; Screening for lipid disorders 09/02/2024 7:30 AM CDT Office Visit [facility] Medical [facility] Family Medicine at [address] [place] [phone] Osiris Dyer NP Positive test (Primary Dx); [...] Comments Hx Other Medical 2012 ibs; 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 - Recurrent tonsillitis Motion sickness Irritable [...] on file Legal Sex Female 1:20 PM 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 Gender Identity Not on file Sexual Orientation [...] BLOOD ORDERABLES Final Re sult [facility] SNOQUALMIE) 1 [facility] [place] [address] * Differential, auto (09/07/2024 8:56 AM CDT) [...] CDT 09/07/2024 9:28 AM CDT Osiris Dyer POISON INFORMATION SPECIALIST LAB BLOOD ORDERABLES Final Re sult Performing Organization Address City/[facility]/ZIP Co de Phone Number NORBERTO CHILDERS (ROXANA) 1 [place] [address] * Thyroid Function [place] (09/07/2024 8:56 AM CDT) TSH 1.59 0.30 - 4.20 mcIUnit/mL Blood 09/07/2024 8:56 AM CDT 09/07/2024 9:28 AM CDT Osiris Dyer POISON INFORMATION SPECIALIST LAB BLOOD ORDERABLES Final Re sult Performing Organization Address [facility] Co de Phone Number NORBERTO CHILDERS (ROXANA) 1 [facility] [employer] [address] * CBC with auto differential (09/07/2024 8:56 AM CDT) WBC 8.68 3.80 - 9.90 K/cumm Hgb 14.0 11.9 - 15.5 g/dL [facility] (ROXANA) Hct 41.3 35.6 - 45.5 % [facility] (RXOANA) Plt 273 150 - 400 K/cumm [facility] (ROXANA) MPV 9.5 9.1 - 12.3 fL [facility] (ROXANA) RBC 4.73 3.90 - 5.20 M/cumm [facility] (ROXANA) MCV 87.3 81.3 - 96.4 fL [facility] (ROXANA) MCH 29.6 27.1 - 33.3 pg [facility] (ROXANA) MCHC 33.9 32.3 - 35.7 g/dL [facility] (ROXANA) RDW CV 12.4 11.1 - 14.9 % [facility] (ROXANA) RDW SD 39.9 35.7 - 48.1 fL [facility] (SNOQUALMIE) NRBC abs 0.00 0.00 - 0.01 K/cumm [facility]O [facility] (SNOQUALMIE) Blood 09/07/2024 8:56 AM CDT 09/07/2024 9:28 AM CDT us Osiris Dyer NP LAB BLOOD ORDERABLES Final Re sult Performing Organization Address [facility] Co de Phone Number NORBERTO CHILDERS (SNOQUALMIE) 1 [place] [address] * Hepatitis C antibody Blood (09/07/2024 8:56 AM CDT) Pathologist [facility] Hep C Ab Nonreactive Nonreactive Comment: Interpretive [...] last revised on 2019. Testing performed by: [facility], [address] [place] [address]., [address] Blood 09/07/2024 8:56 AM CDT 09/07/2024 3:00 PM CDT us Osiris Dyer NP LAB MICROBIOLOGY - GENERAL OR DERABLES Final Result Performing Organization Address [facility] Co de Phone Number NORBERTO CHILDERS (SNOQUALMIE) 1 [place] [address] * (ABNORMAL) Vitamin D 25 hydroxy (09/07/2024 8:56 AM CDT) Pathologist [facility] Vitamin D 25-OH 27(L) 30 - 80 ng/mL Blood 09/07/2024 8:56 AM CDT 09/07/2024 9:28 AM CDT us Osiris Dyer NP LAB BLOOD ORDERABLES Final Re sult Performing Organization Address [facility] Co de Phone Number NORBERTO CHILDERS (SNOQUALMIE) 1 [place] [address] * (ABNORMAL) hCG, blood, quantitative (09/07/2024 8:56 [...] ORDERABLES Final Re sult Performing Organization Address [facility] Co de Phone Number NORBERTO CHILDERS (SNOQUALMIE) 1 [place] [address] * Hemoglobin A1c (09/07/2024 8:56 AM CDT) Pathologist [facility] Hgb A1C 5.1 4.0 - 5.6 % Estimated Average Glucose 100 mg/dL NORBERTO CHILDERS (SNOQUALMIE) Comment: The ADA recommends reporting an estimated Average Glucose (eAG) with all Hemoglobin A1c results using the equation derived from a study of 507 normal and diabetic adults. Minority populations were underrepresented and children were not included. (Diabetes Care 31:2082-7779, 2008). The eAG is not equivalent to a fasting glucose. Blood 09/07/2024 8:56 AM CDT 09/07/2024 9:28 AM CDT Osiris Dyer NP LAB BLOOD ORDERABLES Final Re sult Performing Organization Address City/[facility]/ZIP Co de Phone Number NORBERTO CHILDERS (SNOQUALMIE) 1 [place] [address] * Lipid panel (09/07/2024 8:56 AM CDT) [...] 09/07/2024 9:28 AM CDT us Osiris Dyer POISON INFORMATION SPECIALIST LAB BLOOD ORDERABLES Final Re sult NORBERTO CHILDERS (ROXANA) 1 [facility] Department [place] [address] * Comprehensive metabolic panel (09/07/2024 8:56 AM [...] 09/07/2024 9:28 AM CDT us Osiris Dyer POISON INFORMATION SPECIALIST LAB BLOOD ORDERABLES Final Re sult [facility] (ROXANA) 1 [facility] [place] [address] * Pap with reflex to High Risk [...] has been evaluated with computer assisted technology. Partition Making Machine Operator Marcus Monroy Comment: MVB, CT(ASCP) CT screening location: [place] [address] [address] [address] Review improvement spec Faraz Enriquez Comment: ABC, CT(ASCP) CT screening location: [place] [address] [address] [address] Comment Faraz Enriquez Comment: EXPLANATORY NOTE: The [...] 07/30/2021 3:15 AM CDT us Jackelyn Duenas POISON INFORMATION SPECIALIST LAB CYTOLOGY ORDERABLES F inal Result FARAZ Faraz WebVetGilmaSarah [place] [address] [address] [phone] from Last 3 Months or Most Recently Relevant to Health Maintenance Insurance CIGNA IB Member Subscriber Plan / Payer (Ef fective 2002-Present) Name:Maggie Roman Relation to Subscriber:Self Name:Maggie Roman Payer ID:[id number] ([facility]) Group ID:[id number] Type:CIGNA HMO/PPO Address: [facility] [address] [place] [address] [facility] CHOICE [facility]US [facility] HMO/PPO Address: [facility] [address] [place] [address] CIGNA [facility] CHOICE PLUS [facility] HMO/PPO Address: [facility] [address] [place] [address] [facility] Advance Directives For more information, please contact: [phone] * Full Code (Latest Code Status on File) Date Activated Date Inactivated Comments 08/31/2023 11:30 AM 08/31/2023 6:01 PM Care Teams Equities Trader Relationship Specialty Start Date End Date Osiris Dyer NP [address] [address] PCP - General Family Medicine 09/02/24
--- OUTSIDE RECORDS SUMMARY | 2024-10-08 15:15 | XMS_ITS | Referral Summary ---
Author Organization [facility] Address [address] [facility] [address] [address] Care Team Providers Care Curriculum Coordinator Name Role Phone Osiris Dyer NP Primary Care Provider [phone] Encounters Date Type Department Care Team Description 09/09/2024 Results Follow-Up [facility] Family Medicine at [address] [place] [address] Osiris Dyer NP CBC with auto differential, Comprehensive metabolic panel, Lipid panel, Additional followed-up results: 7 09/07/2024 8:45 AM CDT Lab [address] [address] Need for hepatitis C screening test; Positive test; Vitamin D deficiency; Screening for thyroid disorder; History of elevated glucose; Screening for lipid disorders 09/02/2024 7:30 AM CDT Office Visit [facility] Medical [facility] Family Medicine at [address] [place] [phone] Osiris Dyer NP Positive test (Primary Dx); [...] a day as needed 08/31/2024 Active vit 68-qrec-mqxql-d musa 27mg iron- 800 mcg-250 mg capsule [...] on file Legal Sex Female 1:20 PM 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 Gender Identity Not on file Sexual Orientation [...] 09/07/2024 9:28 AM CDT us Osiris Dyer INSPECTOR AND CLIPPER LAB BLOOD ORDERABLES Final Re sult [facility] CASPIAN 1 [facility] Department [place] [address] * Differential, auto (09/07/2024 8:56 [...] CDT 09/07/2024 9:28 AM CDT Osiris Dyer INSPECTOR AND CLIPPER LAB BLOOD ORDERABLES Final Re sult NORBERTO CHILDERS (ROXANA) 1 [facility] [place] [address] * Thyroid Function Quay (09/07/2024 8:56 AM CDT) TSH 1.59 0.30 - 4.20 mcIUnit/mL Blood 09/07/2024 8:56 AM CDT 09/07/2024 9:28 AM CDT us Osiris Dyer INSPECTOR AND CLIPPER LAB BLOOD ORDERABLES Final Re sult Performing Organization Address [facility] Co de Phone Number NROBERTO CHILDERS (ROXANA) 1 [facility] of [employer] [place] [address] * CBC with auto differential (09/07/2024 8:56 AM CDT) WBC 8.68 3.80 - 9.90 K/cumm Hgb 14.0 11.9 - 15.5 g/dL [facility] (ROXANA) Hct 41.3 35.6 - 45.5 % [facility] (ROXANA) Plt 273 150 - 400 [...] 0.00 0.00 - 0.01 K/cumm [facility] (CASPIAN) Blood 09/07/2024 8:56 AM CDT 09/07/2024 9:28 AM CDT Osiris Dyer NP LAB BLOOD ORDERABLES Final Re sult Performing Organization Address [facility] de Phone Number NORBERTO CHILDERS (CASPIAN) [address] [facility] [employer] [place] [address] * Hepatitis C antibody Blood (09/07/2024 8:56 [...] last revised on 2019. Testing performed by: [facility], [address] [place] [address]., [address] Blood 09/07/2024 8:56 AM CDT 09/07/2024 3:00 PM CDT us Osiris Dyer NP LAB MICROBIOLOGY - GENERAL OR DERABLES Final Result Performing Organization Address [facility] de Phone Number NORBERTO CHILDERS (CASPIAN) 1 [place] [address] * (ABNORMAL) Vitamin D 25 hydroxy (09/07/2024 8:56 AM CDT) Vitamin D 25-OH 27(L) 30 - 80 ng/mL Blood 09/07/2024 8:56 AM CDT 09/07/2024 9:28 AM CDT us Osiris Dyer NP LAB BLOOD ORDERABLES Final Re sult Performing Organization Address [facility]/ZIP Co de Phone Number NORBERTO CHILDERS (CASPIAN) 1 [place] [address] * (ABNORMAL) hCG, blood, quantitative (09/07/2024 8:56 AM CDT) Pathologist [facility] hCG, quant 46,981.0( H) 0.0 - 5.0 [...] ORDERABLES Final Re sult Performing Organization Address [facility] Co de Phone Number NORBERTO CHILDERS (CASPIAN) 1 [place] [address] * Hemoglobin A1c (09/07/2024 8:56 AM CDT) [facility] Hgb A1C 5.1 4.0 - 5.6 % Estimated Average Glucose 100 mg/dL NORBERTO CHILDERS (CASPIAN) Comment: The ADA recommends reporting an estimated Average Glucose (eAG) with all Hemoglobin A1c results using the equation derived from a study of 507 normal and diabetic adults. Minority populations were underrepresented and children were not included. (Diabetes Care 31:0234-7783, 2008). The eAG is not equivalent to a fasting glucose. Blood 09/07/2024 8:56 AM CDT 09/07/2024 9:28 AM CDT Osiris Dyer NP LAB BLOOD ORDERABLES Final Re sult Performing Organization Address City/[facility]/ZIP Co de Phone Number NORBERTO CHILDERS (CASPIAN) 1 [place] [address] * Lipid panel (09/07/2024 8:56 AM CDT) [...] Final Re sult NORBERTO CHILDERS (ROXANA) 1 [facility] Department [place] [address] * Comprehensive metabolic panel (09/07/2024 [...] 09/07/2024 9:28 AM CDT us Osiris Dyer INSPECTOR AND CLIPPER LAB BLOOD ORDERABLES Final Re sult [facility] (ROXANA) 1 [facility] Department [place] [address] * Pap with reflex to High Risk HPV (07/29/2021 4:35 PM CDT) CLINICAL INFORMATION: Lytix BiopharmaKeith Enriquez Comment:Routine exam LMP Yeni MartinezGilmaNya Enriquez Comment:07/15/2021 Previous Pap Yeni MartinezGilmaNya reece Mina Comment:Information not prov ided Prev. Bx Yeni JuanGilmaNya reece Mina Comment:Information not prov ided SOURCE: Yeni JuanKeith shanell Mina Comment:Cervix, Endocervix Pap, specimen adequacy Yeni JuanGilmaNya reece Mina Comment: Satisfactory for evaluation. Endocervical/transformation zone component present. HPV interp Yeni JuanKeith Enriquze Comment:Negative for intraep ithelial lesion or malignancy. COMMENTS Yeni JuanGilmaNya reece Mina Comment: This Pap test has been evaluated with computer assisted technology. Oil And Gas Recruiter Marcus Monroy Comment: MVB, CT(ASCP) CT screening location: [place] [address] [address] [address] Review machine clothing worker Yeni Enriquez Comment: ABC, CT(ASCP) CT screening location: [place] [address] [address] [address] Comment Yeni Enriquez Comment: EXPLANATORY NOTE: The Pap is [...] CDT 07/30/2021 3:15 AM CDT Jackelyn Duenas INSPECTOR AND CLIPPER LAB CYTOLOGY ORDERABLES F inal Result [facility] [address] [address] [address] [phone] from Last 3 Months or Most Recently Relevant to Health Maintenance Insurance CIGNA IBEW Member Subscriber Plan / Payer (Ef fective 2002-Present) Name:Maggie Roman Relation to Subscriber:Self Name:Maggie Roman Allyn Payer ID:[id number] ([facility]) Group ID:[id number] Type:CIGNA HMO/PPO Address: [facility] [address] [place] [address] [facility] CHOICE [facility] HMO/PPO Address: [facility] [address] [place] [address] [facility] CHOICE [facility]US [facility] HMO/PPO Address: [place] [id number] [place] [address] [facility] Advance Directives For more information, please contact: [phone] * Full Code (Latest Code Status on File) Date Activated Date Inactivated Comments 08/31/2023 11:30 AM 08/31/2023 6:01 PM Care Teams Curriculum Coordinator Relationship Specialty Start Date End Date Osiris Dyer INSPECTOR AND CLIPPER [facility] [address] PCP - General Family Medicine 09/02/24
[2024-10-08 15:38] VITALS: BP 136/79; PULSE 86; RESP 19; TEMP 36.4; O2SAT 98
[2024-10-08] MEDS: SODIUM CHLORIDE 0.9% IV 2,000 ML 999 ML IV CONT (15:39)
[2024-10-08] MEDS: METOCLOPRAMIDE HCL INJ 10 MG/2 ML VIAL IV PUSH (15:40)
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
[2024-10-08 15:52] LABS: Basophils Percent Auto 0.2 % (0.2-1.2); Eosinophils Percent Auto 0.1 % (0-4.4); Hematocrit 39.5 % (37.0-47.0); Hemoglobin 13.8 g/dL (12.0-15.0); Immature Granulocyte Absolute 0.08 K/mm3 (0.00-0.031); Immature Granulocyte Percent A 0.6 % (0-0.5); Lymphocytes Absolute Auto 1.58 K/mm3 (0.9-3.2); Lymphocytes Percent Auto 11.6 % (18.3-44.2); Mean Corpuscular HGB Conc 34.9 g/dl (32-36); Mean Corpuscular Hemoglobin 29.6 pg (26-34); Mean Corpuscular Volume 84.6 fl (80-100); Mean Platelet Volume 9.4 fl (7.4-10.4); Monocytes Absolute Auto 0.7 K/mm3 (0.1-0.6); Monocytes Percent Auto 5.1 % (2.6-8.5); Neutrophils Absolute Auto 11.2 K/mm3 (1.3-6.7); Neutrophils Percent Auto 82.4 % (45.5-73.1); Platelet Count Result 298 k/mm3 (150-375); Red Blood Count 4.67 M/mm3 (4.2-5.4); Red Cell Distribution Width 12.4 % (11.5-14.5); White Blood Count 13.6 K/mm3 (4.5-10.0)
[2024-10-08 15:59] LABS: Alanine Aminotransferase 16 U/L (6-35); Albumin Level 4.4 g/dL (3.5-5.1); Alkaline Phosphatase 43 U/L (38-126); Anion Gap 10 mmol/L (4-12); Aspartate Amino Transferase 28 U/L (14-36); Bilirubin,Total 0.5 mg/dL (0.2-1.3); Blood Urea Nitrogen 7 mg/dL (7-17); Calcium 9.7 mg/dL (8.4-10.2); Carbon Dioxide 21 mmol/L (22-30); Chloride 103 mmol/L (98-107); Estimated CRCL calculation 159 ml/min; Estimated Glomerular Filt Rate > 60; Glucose 91 mg/dL (65-110); Lipase 92 U/L (23-300); Sodium 134 mmol/L (137-145)
[2024-10-08 17:01] LABS: Add Urine Microscopic? YES; Appearance Urine Cloudy (Clear); Bacteria Urine None Seen /hpf; Bilirubin Urine Negative (Negative); Blood Urine Negative (Negative); Color Urine Yellow (Yellow); Glucose Urine UA Negative (Negative); Ketones Urine 4+ mg/dL (Negative); Leukocyte Esterase Ur Trace LEU/UL (Negative); Nitrate Urine Negative (Negative); Non Pathogenic Casts 0-2; Protein Urine Trace mg/dL (Negative); RBC Urine 0-2 /hpf (0-2); Specific Grav Ur 1.021 (1.001-1.035); Squamous Epithelial Cell Urine None Seen /hpf (Few); WBC Urine 0-5 /hpf (0-3)
== END 2024-10-08 18:03 | disposition home or self-care (01) ==
PROVIDERS: Emergency Provider Emergency Medicine; PCP Obstetrics & Gynecology
DX: O21.9 Vomiting of pregnancy, unspecified (principal); O99.611 Diseases of the digestive system complicating pregnancy, first trimester; K21.9 Gastro-esophageal reflux disease without esophagitis; K58.9 Irritable bowel syndrome, unspecified; O99.341 Other mental disorders complicating pregnancy, first trimester; F60.3 Borderline personality disorder; Z79.899 Other long term (current) drug therapy; Z3A.10 10 weeks gestation of pregnancy
CPT/HCPCS: 36415; 76801; 80053; 81001; 83690; 84702; 85025; 96361; 96374; 99284; J2765; J7030

== ENCOUNTER 2025-04-24 06:07 | Inpatient (IN) | payer BC, SELFPAY ==
[2025-04-24] VITALS (202 sets, daily range): BP systolic 78–150; BP diastolic 43–120; PULSE 40–229; RESP 16; TEMP 36.3–37.8; O2SAT 91–100; BMI 29.2
[2025-04-24] MEDS: LACTATED RINGERS 1,000 ML 125 ML IV CONT ×3 (07:00→12:52)
--- NOTE | 2025-04-24 07:08 | LDADM ---
This patient, Maggie Roman, was admitted to Labor/Delivery/Recovery 104 on 04/24/25 at 06:07. Plans for labor, pain management and were discussed with patient. Patient/family oriented to hospital policies and general routines including ID bracelet, bed and alarms, visiting hours, pain management, procedures, bathroom and other care routines, personal items, smoking policy, room service/diet and guest tray routines, infant security routines, and visiting hours. Patient/Family are encouraged to report perceived risks to care and to ask questions if they do not understand what they are told or what they should do. See OBIX for further documentation.
[2025-04-24 07:19] LABS: Hematocrit 37.5 % (37.0-47.0); Hemoglobin 12.9 g/dL (12.0-15.0); Immature Granulocyte Percent A 0.9 % (0-0.5); Lymphocytes Absolute Auto 1.84 K/mm3 (0.9-3.2); Mean Corpuscular HGB Conc 34.4 g/dl (32-36); Mean Corpuscular Hemoglobin 29.9 pg (26-34); Mean Corpuscular Volume 87.0 fl (80-100); Nucleated Red Blood Cells Absolute Auto 0.000 K/mm3 (0.0-0.012); Nucleated Red Blood Cells Perc 0.0 % (0.0-0.2); Platelet Count Result 211 k/mm3 (150-375); Red Blood Count 4.31 M/mm3 (4.2-5.4); White Blood Count 9.1 K/mm3 (4.5-10.0)
[2025-04-24 07:36] LABS: OBXCEM ROM Plus Positive (Negative)
[2025-04-24] MEDS: OXYTOCIN 30 UNITS/NS 500 ML 30 UNITS/500 ML BAG 6 UNITS IV CONT (08:07)
[2025-04-24 08:36] LABS: Syphilis IgG/IgM Antibody Non-Reactive (Nonreactive)
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
[2025-04-24] MEDS: SODIUM CHLORIDE 0.9% IV 300 ML 600 ML I-UTERINE (16:06)
[2025-04-24] MEDS: OXYTOCIN 30 UNITS/NS 500 ML 30 UNITS/500 ML BAG 125 UNITS IV CONT (20:41)
--- NOTE | 2025-04-24 21:04 | PM.OBPRVD ---
OB - Vaginal Delivery Note Procedure Delivery date: 04/24/25 Delivery monitor: External FHT, External Uterine and Internal Uterine Route of delivery: Episiotomy description: None Laceration Description: Perineal - 2nd Degree Delivery repair: vicryl Specimen: Yes (cord blood) Quantitative Blood Loss (ml): 650 Anesthesia type: Epidural Disposition: PACU Complications: None Narrative: 29 y/o primigravida at 38 6/7 weeks gestation who presented to the hospital after a gush of clear fluid at 0630. RomPlus was positive, and she was admitted to L&D. Labor was subsequently augmented with oxytocin IV. She received an epidural for pain control. I received checkout from Dr. Stephens in the evening and assumed her care. Her labor progressed and her cervix dilated completely. She pushed with good effort and delivered the infant's head to the perineum. A loose nuchal cord was splinted and the body delivered. The cord was reduced, and the nose and mouth were bulb suctioned. After a delay, the cord was clamped and cut. The was handed off the field. Cord blood was collected. The placenta delivered spontaneously and was grossly normal in appearance. The usual 3 vessel cord was noted. A second degree midline perineal laceration, with bilateral extension into the vaginal sulci was sustained. This was reapproximated using 3 0 Vicryl in the usual layered fashion. The vaginal epithelium was edematous, and sutures readily tore through the tissue. Some persistent oozing was noted despite good reapproximation of the wound edges. Therefore, a bass catheter was placed, and the distal vagina was lightly packed with gauze. Needle and instrument counts were correct. The patient was taken to recovery room in stable condition. The infant went to the nursery in stable condition. I was present and scrubbed for the entire delivery. Plan to remove the packing and bass in the AM. [place] Baby Date of : 04/24/25 Time of : 20:19 Gestational Age by Date: 38 gender: Male Weight (pounds): 8 Weight (ounces): 7 presentation: vertex position: Left Occiput Anterior Placenta delivery description: Spontaneous and Normal Configuration Cord Vessel Description: 3 Vessels and Nuchal Cord score one minute: 6 score five minutes: 9
--- NOTE | 2025-04-24 21:18 | P.DS_ITS ---
DS: Admitting Diagnosis Admitting Diagnosis IUP at 38 6/7 weeks SROM DS: Discharge Diagnosis Discharge Diagnosis (1) (normal spontaneous vaginal delivery): Code(s): O80 - Encounter for full-term uncomplicated delivery Status: Acute OB - DS: Summary OB Procedures : NST OB Procedures Intrapartum: Spontaneous Vag Delivery OB Procedures: : None Peripartum Data Laceration Description: Perineal - 2nd Degree Episiotomy description: None Time Spent with Patient Time attestation: Total time spent providing and/or coordinating discharge services: DS: Data Data Completed and Pending Labs on day of discharge: Labs from last 24 hours 04/24/25 04/24/25 07:06 06:29 WBC 9.1 RBC 4.31 Hgb 12.9 Hct 37.5 MCV 87.0 MCH 29.9 MCHC 34.4 RDW 13.9 Plt Count 211 MPV 10.0 Immature Gran % (Auto) 0.9 H Neut % (Auto) 70.1 Lymph % (Auto) 20.2 Gates % (Auto) 8.0 Eos % (Auto) 0.5 Baso % (Auto) 0.3 Lymph # (Auto) 1.84 Gates # (Auto) 0.7 H Eos # (Auto) 0.1 Baso # (Auto) 0.0 Abs Immat Gran (auto) 0.08 H Absolute Neuts (auto) 6.4 Absolute Nucleated RBC 0.000 Nucleated RBC % 0.0 Membranes Rupture Rom plus positive Syphilis IgG/IgM Ab Non-reactive Blood Type A Positive Antibody Screen Negative Discharge Plan Discharge Attending physician on discharge: Zay Stephens Patient Disposition: Home Activity: pelvic rest Diet: regular Discharge Instructions: Call or return if temperature above 100.4? F, increased abdominal pain, increased vaginal bleeding or any new problems. Patient Language: Romanian Stand Alone Forms: General Discharge Information Follow-up/Referrals: Lyudmila Last MD [Physician, ELECTRICAL MAINTENANCE WORKER] - Call for Appointment Discharge Medications: No Action lamotrigine 200 mg tablet 200 mg PO .every day DHA 200 mg capsule 200 mg PO DAILY sertraline 50 mg tablet 50 mg PO .every day aspirin 81 mg tablet,chewable 81 mg PO DAILY Unisom (doxylamine) 25 mg tablet 25 mg PO QHS PRN (Reason: sleep) Date of admission: 04/24/25 06:07 Primary Care Provider: UNKNOWN,DOCTOR Admitting Provider: Lyudmila Last Attending physician on admission: Lyudmila Last Condition: Stable
[2025-04-24] MEDS: LACTATED RINGERS 1,000 ML 999 ML IV CONT (21:40)
--- NOTE | 2025-04-24 23:31 | OBPPTRN ---
Patient transferred to post room #287 via wheelchair. Support person present. Oriented to unit, room, information board, rooming in, admission packet and security measures. Patient verbalizes understanding.
[2025-04-25] MEDS: IBUPROFEN 600 MG TABLET PO ×4 (01:07→21:31)
[2025-04-25 04:09] VITALS: BP 95/61; PULSE 81; RESP 16; TEMP 36.8; O2SAT 98
[2025-04-25 04:51] LABS: Hematocrit 29.0 % (37.0-47.0); Hemoglobin 9.7 g/dL (12.0-15.0)
[2025-04-25 08:30] VITALS: BP 103/66; PULSE 86; RESP 18; TEMP 36.7; O2SAT 98
[2025-04-25] MEDS: DOCUSATE SODIUM 100 MG CAPSULE PO ×2 (10:17→16:23)
[2025-04-25] MEDS: MULTIVIT/MIN/PREN/FOL AC/IRON TABLET 1 TAB PO (10:17)
[2025-04-25] MEDS: ACETAMINOPHEN 325 MG TABLET 650 MG PO ×3 (10:18→21:32)
--- NOTE | 2025-04-25 10:40 | WPDANLDPN2 ---
Anes-Prog Note L&D Date/Time: 04/25/25 10:40 Comfortable throughout: labor and delivery Neuraxial method: epidural Epidural/Spinal procedure site: clean & non-tender Neuro status: Neuro function grossly intact. Cardiovascular status: normal Respiratory status: normal Airway patency: baseline Mental status: baseline Post-Op hydration status: normal Vital Signs: Last Vital Signs Temp 36.7 C 04/25/25 08:30 Pulse 86 04/25/25 08:30 Resp 18 04/25/25 08:30 BP 103/66 04/25/25 08:30 Pulse Ox 98 04/25/25 08:30 O2 Del Method Room Air 04/24/25 23:38 Pain score (VAS): 2 I/O: Intake & Output 04/24/25 04/25/25 04/25/25 23:59 07:59 15:59 Output Total [phone] [facility] [phone] Patient feedback: Patient satisfied with anesthetic care.
[2025-04-25 12:22] VITALS: BP 105/66; PULSE 72; RESP 18; TEMP 36.8; O2SAT 98
--- NOTE | 2025-04-25 13:15 | P.DS_ITS ---
DS: Admitting Diagnosis Discharge Date 04/26/2025 Admitting Diagnosis DS: Discharge Diagnosis Discharge Diagnosis (1) , delivered: Code(s): O80 - Encounter for full-term uncomplicated delivery Status: Acute OB - DS: Summary OB Procedures : None OB Procedures Intrapartum: Spontaneous Vag Delivery OB Procedures: : None Peripartum Data Laceration Description: Perineal - 2nd Degree Episiotomy description: None Time Spent with Patient Time attestation: Total time spent providing and/or coordinating discharge services: DS: Data Data Completed and Pending Labs on day of discharge: Labs from last 24 hours 04/25/25 04:14 Hgb 9.7 L D Hct 29.0 L Discharge Plan Discharge Attending physician on discharge: Zay Stephens Discharging Clinician: Zay Stephens Patient Disposition: Home Activity: pelvic rest Diet: regular Discharge Instructions: Call or return if temperature above 100.4? F, increased abdominal pain, increased vaginal bleeding or any new problems. Patient Language: Scottish Stand Alone Forms: General Discharge Information Follow-up/Referrals: Zay Stephens MD [Physician, SUPERVISOR FABRICATION AND ASSEMBLY] - 4 Weeks Lyudmila Last MD [Physician, SUPERVISOR FABRICATION AND ASSEMBLY] - Call for Appointment Discharge Medications: New ibuprofen 600 mg Tablet 600 mg PO Q6H PRN (Reason: Cramping) Qty: 30 0RF Continued lamotrigine 200 mg tablet 200 mg PO .every day DHA 200 mg capsule 200 mg PO DAILY sertraline 50 mg tablet 50 mg PO .every day Unisom (doxylamine) 25 mg tablet 25 mg PO QHS PRN (Reason: sleep) Discontinued aspirin 81 mg tablet,chewable 81 mg PO DAILY Date of admission: 04/24/25 06:07 Primary Care Provider: UNKNOWN,DOCTOR Admitting Provider: Lyudmila Last Attending physician on admission: Lyudmila Last Condition: Stable
--- NOTE | 2025-04-25 13:17 | PM.OBPNVD ---
OB - PN: Subj Subjective Date/time seen: 04/25/25 13:17 S: Overall doing well, perineum is swollen and uncomfortable. Unable to urinate yet but catheter was just removed. No significant bleeding. O: VSS afebrile Abdomen: Positive bowel sounds soft Perineum: Edematous no hematoma A: Overall doing well P: If unable to urinate will replace [place] again overnight and if unable to urinate tomorrow before home will have for instruction home straight cathing. Discussed this with patient today though not likely need to occur. OB - PN: Obj Data Labs 04/25/25 04:14 Labs: Laboratory Results - last 24 hr 04/25/25 04:14 Hgb 9.7 L D Hct 29.0 L OB - PN A/P Time Spent With Patient Time: Total time spent is greater than 50% in coordination of care (as documented) at patient's floor/unit and/or counseling patient:
--- NOTE | 2025-04-25 14:54 | PCCCNOTE ---
Met with pt. and AVERY/Zoya Bach. This is their first baby. They have all necessary baby supplies and pt. plans to breast feed at discharge. Pt. already has a breast pump. Pt. was provided with resources. She is aware of services for postpartem to use if needed that are now located in her folder. She reports Zoloft is a home medication, encouraged pt. to follow up with her primary care physician and OB at discharge if needed. Pt. and Isreal deny any case management needs.
--- NOTE | 2025-04-25 15:45 | PC.NURSE ---
Attempted to get pt out of bed to use the bathroom. She was able to stand up with assistance at the bedside but then became pale and stated I don't feel right. RN layed her back down in the bed and she began to get the shakes. Covered pt with a warm blanket. Alert and oriented x3. BP 111/73. Fundus firm at 2/u and to the right. Small to moderate vaginal bleeding noted. Perineum appears less swollen than this morning, but still edematous. Pt resting in bed with FOB at bedside. Will attempt in a little while to sit pt back up. Offered bedpan or BSC if pt desires.
--- NOTE | 2025-04-25 16:12 | PC.NURSE ---
[id number] Per Primary RN, Aidan Amador, mother had just attempted at the breast and she was able to use the breast pump and father of the baby is feeding infant right now while mother naps, she encouraged her to call out with the next feeding for . [phone] Consulted with patient to assess needs related to . Discussed with mother her successes, concerns and any questions she has. Per mother she had previously tried the nipple shield to latch but was unsuccessful and the has just returned to the room after his circumcision, so he is sleepy. We reviewed working with the infant, supporting breast, protecting her nipples with an optimal deep latch, good positioning, and good hand washing. Encouraged understanding the benefits of skin to skin, responding to feeding cues, frequencies of feeding 8-12 times in 24 hours (approximately 2-3 hours), duration of feedings, milk production, intake/output feeding sheet and signs of adequate intake encouraging swallowing at the breast. Reviewed positioning and alignment, supporting breast, off-centered (asymmetrical latch) and leading with the chin with big, open, wide gape. attempted to latch to both the [left and right] breast in [football and cross cradle] positions, he really likes to suck his tongue and keeps it at the roof of his mouth, we attempted both with a nipple shield and without. Education given to the mother of how to visualize the suckling (with good rocking jaw motion) swallows (dropping of the lower jaw) and how to listen for drinking at the breast (the ka sound). Discussed mother using the breast pump at this time, she did for about 15 mins and really was not able to get more than a few drops, then used the hand pump and the volume increased, she was going to finish up and FOB would feed the infant. We also discussed that the infant is going to need a little more volume soon if he is not able to latch, as mother may not be able to pump as much volume as he needs right now, parents were ok with that plan if needed. Nipple care reviewed with optimal latch, good positioning and using clean hands when touching her breast. Resources used to facilitate learning were used from the [visual handouts/ tool/mom and baby guide]. Mother voiced understanding of the education shared, to call for assistance if the infant does not latch or if there is discomfort with . Reported to the Primary RN.
[2025-04-25 19:40] VITALS: PULSE 88; RESP 18; O2SAT 99
[2025-04-25 19:53] VITALS: BP 108/70; PULSE 88; RESP 18; TEMP 36.6; O2SAT 99
[2025-04-25] MEDS: SIMETHICONE 80 MG TAB.CHEW PO (21:25)
[2025-04-25] MEDS: SERTRALINE HCL 50 MG TABLET PO (21:26)
[2025-04-26] MEDS: ACETAMINOPHEN 325 MG TABLET 650 MG PO ×2 (03:20→09:07)
[2025-04-26] MEDS: IBUPROFEN 600 MG TABLET PO ×2 (03:20→09:06)
[2025-04-26 08:50] VITALS: BP 108/74; PULSE 84; RESP 16; TEMP 36.5; O2SAT 99
[2025-04-26] MEDS: MULTIVIT/MIN/PREN/FOL AC/IRON TABLET 1 TAB PO (09:07)
[2025-04-26] MEDS: DOCUSATE SODIUM 100 MG CAPSULE PO (09:07)
--- NOTE | 2025-04-26 10:21 | P.PNOB_ITS ---
OB - PN: Subj Subjective Date/time seen: 04/26/25 10:21 Patient comments: pain well controlled, tolerating diet and other (Decreasing lochia.) baby status: doing well and nursing well OB - PN: Obj Data Labs 04/25/25 04:14 OB - PN A/P Assessment and Plan (1) , delivered: Code(s): O80 - Encounter for full-term uncomplicated delivery Status: Acute Plan day: 2 Plan: discharge home and other Comments: Patient doing well. Follow up 4-6 weeks. Discharge instructions provided. Time Spent With Patient Time: Total time spent is greater than 50% in coordination of care (as documented) at patient's floor/unit and/or counseling patient: Time with patient: less than 15 minutes Exam 2 Extrem: General: no calf tenderness Psych: Other: Abd: fundus firm below umbilicus, nontender Ext: nontender
[2025-04-28 10:49] VITALS: BP 116/77; PULSE 88; RESP 18; TEMP 37.4; O2SAT 100
== END 2025-04-26 13:42 | disposition home or self-care (01) | DRG 807 ==
LOC: ANHLDR 21:20 → ANHOB2 04-26 10:23 → ANHLDR 04-29 09:44 → ANHOB2 04-29 09:44
PROVIDERS: Obstetrics & Gynecology; Admitting Provider Obstetrics & Gynecology; Visit Provider Obstetrics & Gynecology
DX: O69.81X0 Labor and delivery complicated by cord around neck, without compression, not applicable or unspecified (principal); Z37.0 Single live birth; O70.1 Second degree perineal laceration during delivery; Z3A.38 38 weeks gestation of pregnancy
CPT/HCPCS: 36415; 84112; 85014; 85018; 85025; 86593; 86850; 86900; 86901; A9270; J2590; J2795; J7030; J7120